=== PATIENT | female | born 2005 | race African-American/Black ===

== ENCOUNTER 2023-01-11 13:00 | Emergency (ER) | payer MEDICAID ==
[~2023-01-11] VITALS: Ht 167.6 cm; Wt 45.0 kg
[2023-01-11 13:09] VITALS: BP 111/76; PULSE 102; RESP 18; TEMP 98.2; O2SAT 100
[2023-01-11] MEDS ORDERED: ACETAMINOPHEN 325MG TABLET PO ONE (14:15)
[2023-01-11] MEDS ORDERED: KETOROLAC 30MG/ML VIAL IM ONE (14:15)
== END 2023-01-11 17:00 | disposition left against medical advice (07) ==
LOC: ER 13:00
DX: R51.9 Headache, unspecified (principal)
CPT/HCPCS: 81025; 99283